=== PATIENT | female | born 1970 | race Caucasian/White ===

== ENCOUNTER 2019-03-05 16:45 | Inpatient (IN) | payer OTHER ==
[2019-03-05 18:31] VITALS: BMI 24.3
--- NOTE | 2019-03-05 19:25 | HP ---
COWS - Scale Resting Pulse: 0= MT 80 or Below Sweatin= Chills/Flushing Restless Observation: 3= Extraneous Movement Pupil Size: 1= Pupils >than Normal Bone or Joint Aches: 1= Mild Discomfort Runny Nose/ Eye Tearin= Nasal Congestion GI Upset > 30mins: 1= Stomach Cramp Tremor Observation: 1= Tremor [place], Not Seen Yawning Observation: 2= >3x During Session Anxiety or Irritability: 2=Irritable/Anxious Goose Flesh Skin: 3=Piloerection COWS Score: 16 CIWA Score - Admission Criteria [facility]ASAS Guidelines: Admission for Medically Managed Detox: Requires at least one of the followin. CIWA greater than 12 2. Seizures within the past 24 hours 3. Delirium tremens within the past 24 hours 4. Hallucinations within the past 24 hours 5. Acute intervention needed for co occurring medical disorder 6. Acute intervention needed for co occurring psychiatric disorder 7. Severe withdrawal that cannot be handled at a lower level of care (continued vomiting, continued diarrhea, abnormal vital signs) requiring intravenous medication and/or fluids 8. Admission ROS [facility] Chief Complaint: Withdrawal symptoms Allergies/Adverse Reactions: Allergies Allergy/AdvReac Type Severity Reaction Status Date / Time No Known Allergies Allergy Verified 03/05/19 18:13 History of Present Illness: 48 y.o. woman with an extensive history of heroin dependence is here for detox. She reports she last completed detox in [place], [place] one month ago. Longest period of illicit drug abstinence has been 4 years and reports she relapsed in 08/2018 Exam Limitations: No Limitations - Ebola screening Have you traveled outside of the country in the last 21 days: No (N) Have you had contact with anyone from an Ebola affected area: No Do you have a fever: No - Review of Systems Constitutional: Loss of Appetite, Unintentional Wgt. Loss EENT: reports: No Symptoms Reported Respiratory: reports: Cough, Wheezing Cardiac: reports: No Symptoms Reported GI: reports: No Symptoms Reported : reports: No Symptoms Reported Musculoskeletal: reports: Joint Pain Integumentary: reports: Lumps (Left hand) Neuro: reports: No Symptoms reported Endocrine: reports: No Symptoms Reported Hematology: reports: Anemia Psychiatric: reports: Mood/Affect Appropiate, Orientated x3 Other Systems: Reviewed and Negative Patient History - Patient Medical History Hx Anemia: Yes (PAULETTE) Hx Asthma: Yes Hx Chronic Obstructive Pulmonary Disease (COPD): No Hx Cancer: No Hx Cardiac Disorders: No Hx Congestive Heart Failure: No Hx Hypertension: No Hx Hypercholesterolemia: No Hx Pacemaker: No HX Cerebrovascular Accident: No Hx Seizures: No Hx Dementia: No Hx Diabetes: No Hx Gastrointestinal Disorders: Yes (TAKES OMEPRAZOLE ) Hx Liver Disease: No Hx Genitourinary Disorders: No Hx Sexually Transmitted Disorders: No Hx Renal Disease (ESRD): No Hx Thyroid Disease: No Hx Human Immunodeficiency Virus (HIV): No Hx Hepatitis C: Yes (REPORTS SHE CLEARED THE VIRUS ) Hx Depression: No Hx Suicide Attempt: No Hx Bipolar Disorder: No Hx Schizophrenia: No Other Medical History: LYME DISEASE - Patient Surgical History Past Surgical History: Yes Other Surgical History: LIPOMA REMOVAL Anesthesia Reaction: No - PPD History Previous Implant?: Yes Documented Results: Negative w/o proof PPD to be Administered?: Yes - Reproductive History Patient is a Female of Child Bearing Age (11 -55 yrs old): Yes Last Menstrual Period: 05/25/18 Patient : No - Smoking Cessation Smoking history: Current every day smoker Have you smoked in the past 12 months: Yes Aproximately how many cigarettes per day: 10 Initiated information on smoking cessation: Yes 'Breaking Loose' booklet given: 03/05/19 - Substance & Tx. History Hx Alcohol Use: No Hx Substance Use: Yes Substance Use Type: Cocaine, Heroin Hx Substance Use Treatment: Yes (DETOX: 1 MONTH AGO ) - Substances abused Heroin Substance route: Injection Frequency: Daily Amount used: 16 bags Age of first use: 26 Date of last use: 03/05/19 Crack Substance route: Smoking Frequency: Daily Amount used: 10 dime bags Age of first use: 16 Date of last use: 03/05/19 Cocaine Substance route: Injection Frequency: 3-6 times per week Amount used: 20 dollars Age of first use: 39 Date of last use: 03/03/19 Marijuana/Hashish Substance route: Smoking Frequency: 1-2 times per week Amount used: one joint Age of first use: 13 Date of last use: 03/02/19 Family Disease History - Family Disease History Family Disease History: Respiratory: Mother (ETOH DEPENDENCE ), Brother, Son, Other: Mother Admission Physical Exam BHS - Vital Signs Vital Signs: Vital Signs - 24 hr 03/05/19 18:21 Temperature 97.5 F L Pulse Rate 66 Respiratory 18 Rate Blood Pressure 131/79 - Physical General Appearance: Yes: Tremorous, Sweating, Anxious HEENTM: Yes: Hearing grossly Normal, Normocephalic, Normal Voice Respiratory: Yes: Lungs Clear, Normal Breath Sounds, No Respiratory Distress, No Accessory Muscle Use Neck: Yes: No masses,lesions,Nodules, Trachea in good position Breast: Yes: Breast Exam Deferred Cardiology: Yes: Regular Rate, Murmur Abdominal: Yes: Non Tender, Flat, Soft Genitourinary: Yes: Other (No complaints reported) Back: Yes: Normal Inspection Musculoskeletal: Yes: full range of Motion, Gait Steady, Pelvis Stable Extremities: Yes: Normal Inspection, Swelling (left hand), Erythema, Inflammation Neurological: Yes: Alert, Normal Mood/Affect, Normal Response Integumentary: Yes: Warm, Track [place] Lymphatic: Yes: Within Normal Limits - Diagnostic (1) Opioid dependence Current Visit: Yes Status: Chronic (2) Cocaine dependence Current Visit: Yes Status: Chronic (3) Nicotine dependence Current Visit: Yes Status: Chronic (4) GERD (gastroesophageal reflux disease) Current Visit: Yes Status: Chronic (5) Lyme disease Current Visit: Yes Status: Chronic (6) Asthma Current Visit: Yes Status: Chronic (7) Tinea pedis Current Visit: Yes Status: Acute (8) HCV (hepatitis C virus) Current Visit: Yes Status: Chronic (9) Cellulitis of hand, left Current Visit: Yes Status: Acute Cleared for Admission S - Detox or Rehab [facility] Level of Care: Medically Managed Detox Regimen/Protocol: Methadone Breathalyzer - Breathalyzer Breathalyzer: 0 POC Urine test - Test device test lot number: [id number] Expiration date: 07/24/20 - Control test control: Yes - Result Urine Test Results: Negative - NO line present Urine Drug Screen - Test Device Lot number: [id number] Expiration date: 11/21/20 - Control Is test valid?: Yes - Results Drug screen NEGATIVE: No Urine drug screen results: THC-Marijuana, AKIL-Cocaine, FEN-Fentanyl, MOP-Opiates , BZO-Benzodiazepines Inpatient Rehab Admission - Rehab Decision to Admit Inpatient rehab admission?: No
[2019-03-05] MEDS ORDERED: MAG HYDROX/AL HYDROX/SIMETH 30 ML UNIT-DOSE CUP PO PRN (19:33)
[2019-03-05] MEDS ORDERED: hydrOXYzine PAMOATE 25 MG CAPSULE (FP) PO PRN (19:33)
[2019-03-05] MEDS ORDERED: cloNIDine HCL 0.1 MG TABLET PO PRN (19:33)
[2019-03-05] MEDS ORDERED: MENTHOL/PHENOL 1 EACH UD MM PRN (19:33)
[2019-03-05] MEDS ORDERED: METHADONE HCL 10 MG TABLET (FOR DETOX USE ONLY) PO ONE ×2 (19:33→23:00)
[2019-03-05] MEDS ORDERED: MAGNESIUM CITRATE 300 ML BOTTLE PO PRN (19:33)
[2019-03-05] MEDS ORDERED: MELATONIN 5 MG TABLETS PO PRN (19:33)
[2019-03-05] MEDS ORDERED: ACETAMINOPHEN 325 MG TABLET (FP) PO PRN ×2 (19:33)
[2019-03-05] MEDS ORDERED: NALOXONE HCL 0.4 MG/ML VIAL IVPUSH PRN (19:33)
[2019-03-05] MEDS ORDERED: MAGNESIUM HYDROX 2400MG/30ML ORAL SUSPENSION 30 ML CUP PO PRN (19:33)
[2019-03-05] MEDS ORDERED: BISMUTH SUBSALICYLATE 524 MG/30 ML UD PO PRN (19:33)
[2019-03-05] MEDS ORDERED: METHOCARBAMOL 500 MG TABLET PO PRN (19:33)
[2019-03-05] MEDS ORDERED: ALBUTEROL SO4 8 GM HFA INHALER IH PRN (19:36)
[2019-03-05] MEDS: PANTOPRAZOLE 20 MG TABLET (FP) PO SCH (21:04)
[2019-03-05] MEDS: THIAMINE HCL 100 MG TABLET (FP) PO SCH (22:21)
[2019-03-05] MEDS: SULFAMETHOXAZOLE/TRIMETHOPRIM 800MG/160MG D.S. TABLET PO SCH (22:21)
[2019-03-05] MEDS: TOLNAFTATE 1% CREAM 15 GM TUBE TP SCH (22:22)
[2019-03-06] MEDS ORDERED: METHADONE HCL 10 MG TABLET (FOR DETOX USE ONLY) PO ONE (10:00)
[2019-03-06 10:04] LABS: ALBUMIN 2.8 g/dl (3.4-5.0); BILIRUBIN,TOTAL 0.3 mg/dL (0.2-1); BLOOD UREA NITROGEN 18.4 mg/dL (7-18); CALCIUM 8.8 mg/dL (8.5-10.1); CREATININE 0.9 mg/dL (0.55-1.3); POTASSIUM 5.6 mmol/L (3.5-5.1); TOT PROT 6.4 g/dl (6.4-8.2)
[2019-03-06 10:15] LABS: HEMATOCRIT 32.9 % (32.4-45.2); HEMOGLOBIN 10.3 GM/dL (10.7-15.3); MCHC 31.3 g/dl (32.0-36.0); MEAN CELL VOLUME 76.8 fl (80-96); MEAN PLT VOLUME 8.8 fl (7.5-11.1); RBC 4.28 M/mm3 (3.60-5.2); RDW 20.6 % (11.6-15.6); WHITE BLOOD COUNT 4.6 K/mm3 (4.0-10.0)
[2019-03-06 10:24] LABS: PLATELET COUNT 238 K/MM3 (134-434)
[2019-03-06] MEDS: PANTOPRAZOLE 20 MG TABLET (FP) PO SCH (10:39)
[2019-03-06] MEDS: SULFAMETHOXAZOLE/TRIMETHOPRIM 800MG/160MG D.S. TABLET PO SCH ×2 (10:39→22:12)
[2019-03-06] MEDS: IBUPROFEN 400 MG TABLET (FP) PO PRN ×2 (10:40→22:15)
[2019-03-06] MEDS: TOLNAFTATE 1% CREAM 15 GM TUBE TP SCH ×2 (10:41→22:12)
[2019-03-06] MEDS: PRENATAL VITAMINS W/ FOLIC ACID TABLET (FP) PO SCH (10:42)
--- NOTE | 2019-03-06 14:02 | EKG ---
Test Reason : Blood Pressure : / mmHG Vent. Rate : 064 BPM Atrial Rate : 064 BPM P-R Int : 148 ms QRS Dur : 082 ms QT Int : 398 ms P-R-T Axes : 066 066 048 degrees QTc Int : 410 ms NORMAL SINUS RHYTHM NORMAL ECG NO PREVIOUS ECGS AVAILABLE Confirmed by LEONCIO MCKEON MD ([id number]) on 03/06/2019 2:02:23 PM Referred By: Confirmed By:LEONCIO MCKEON MD
--- NOTE | 2019-03-06 16:00 | PN ---
BHS COWS - Scale Resting Pulse: 0= [place] 80 or Below Sweatin= Chills/Flushing Restless Observation: 0= Sits Still Pupil Size: 0= Normal to Room Light Bone or Joint Aches: 2= Severe Diffuse Aches Runny Nose/ Eye Tearin= None GI Upset > 30mins: 1= Stomach Cramp Tremor Observation of Outstretched Hands: 0= None Yawning Observation: 1= 1-2x During Session Anxiety or Irritability: 2=Irritable/Anxious Goose Flesh Skin: 3=Piloerection COWS Score: 10 BHS Progress Note (SOAP) Subjective: Body Aches, Stomach Cramping, Anxious, Fatigue. Objective: PATIENT A & O X 3. IN NO ACUTE DISTRESS. 03/06/19 16:01 Vital Signs Temperature 97.4 F L 03/06/19 13:30 Pulse Rate 69 03/06/19 13:30 Respiratory Rate 18 03/06/19 13:30 Blood Pressure 137/87 03/06/19 13:30 O2 Sat by Pulse Oximetry (%) Laboratory Tests 03/05/19 03/06/19 03/06/19 21:52 07:00 07:00 WBC 4.6 RBC 4.28 Hgb 10.3 L Hct 32.9 MCV 76.8 L MCH 24.0 L MCHC 31.3 L RDW 20.6 H Plt Count 238 MPV 8.8 Sodium 141 Potassium 5.6 H Chloride 110 H Carbon Dioxide 30 Anion Gap 1 L BUN 18.4 H Creatinine 0.9 Est GFR (CKD-EPI)AfAm 87.02 Est GFR (CKD-EPI)NonAf 75.08 Random Glucose 88 Calcium 8.8 Total Bilirubin 0.3 AST 12 L ALT 14 Alkaline Phosphatase 89 Total Protein 6.4 Albumin 2.8 L POC Urine HCG, Qual Negative RPR Titer 03/06/19 07:00 WBC RBC Hgb Hct MCV MCH MCHC RDW Plt Count MPV Sodium Potassium Chloride Carbon Dioxide Anion Gap BUN Creatinine Est GFR (CKD-EPI)AfAm Est GFR (CKD-EPI)NonAf Random Glucose Calcium Total Bilirubin AST ALT Alkaline Phosphatase Total Protein Albumin POC Urine HCG, Qual RPR Titer Nonreactive LABS NOTED. Assessment: 03/06/19 16:01 WITHDRAWAL SYMPTOMS. HYPERKALEMIA. ANEMIA (LOW HGB LEVEL). 03/06/19 16:03 Plan: CONTINUE DETOX. FEOSOL, 325 MG PO BIDWM FOR ANEMIA NOTED ON DETOX ADMISSION LABORATORY ASSESSMENT. PATIENT IS CURRENTLY RECEIVING DAILY MVI CONTAINING B VITAMINS AND IRON WHILE ADMITTED FOR DETOX. REPEAT K LEVEL FOR TOMORROW AM FOR ELEVATED K LEVEL NOTED ON DETOX ADMISSION LABORATORY ASSESSMENT.
[2019-03-06] MEDS: FERROUS SO4 325 MG TABLET (FP) PO SCH (22:11)
[2019-03-06] MEDS: THIAMINE HCL 100 MG TABLET (FP) PO SCH (22:12)
[2019-03-06] MEDS: clonazePAM 0.5 MG TABLET PO PRN (22:13)
[2019-03-07] MEDS: FERROUS SO4 325 MG TABLET (FP) PO SCH ×2 (07:53→17:23)
[2019-03-07] MEDS ORDERED: METHADONE HCL 10 MG TABLET (FOR DETOX USE ONLY) PO ONE (10:00)
[2019-03-07] MEDS: clonazePAM 0.5 MG TABLET PO PRN ×2 (10:30→17:25)
[2019-03-07] MEDS: SULFAMETHOXAZOLE/TRIMETHOPRIM 800MG/160MG D.S. TABLET PO SCH ×2 (10:30→22:18)
[2019-03-07] MEDS: PRENATAL VITAMINS W/ FOLIC ACID TABLET (FP) PO SCH (10:30)
[2019-03-07] MEDS: PANTOPRAZOLE 20 MG TABLET (FP) PO SCH (10:30)
[2019-03-07] MEDS: TOLNAFTATE 1% CREAM 15 GM TUBE TP SCH ×2 (10:34→23:30)
--- NOTE | 2019-03-07 15:10 | PN ---
S CIWA - CIWA Score Nausea/Vomitin (Stomach Cramping.) Muscle Tremors: None Anxiety: 2 Agitation: 1-Slight > Activity Paroxysmal Sweats: No Perspiration Orientation: 0-Oriented Tacttile Disturbances: 2-Mild Itch/Numbness/Burn Auditory Disturbances: 1-Very Mild Visual Disturbances: 2-Mild Sensitivity Headache: 0-None Present CIWA-Ar Total Score: 10 BHS Progress Note (SOAP) Subjective: Body Aches, Anxious, Stomach Cramping, Fatigue. Objective: PATIENT A & O X 3, OBSERVED AMBULATING ON UNIT UNASSISTED. IN NO ACUTE DISTRESS. 03/07/19 15:11 Vital Signs Temperature 98.9 F 03/07/19 09:39 Pulse Rate 61 03/07/19 09:39 Respiratory Rate 18 03/07/19 09:39 Blood Pressure 150/77 03/07/19 09:39 O2 Sat by Pulse Oximetry (%) Laboratory Tests 03/05/19 03/06/19 03/06/19 21:52 07:00 07:00 WBC 4.6 RBC 4.28 Hgb 10.3 L Hct 32.9 MCV 76.8 L MCH 24.0 L MCHC 31.3 L RDW 20.6 H Plt Count 238 MPV 8.8 Sodium 141 Potassium 5.6 H Chloride 110 H Carbon Dioxide 30 Anion Gap 1 L BUN 18.4 H Creatinine 0.9 Est GFR (CKD-EPI)AfAm 87.02 Est GFR (CKD-EPI)NonAf 75.08 Random Glucose 88 Calcium 8.8 Total Bilirubin 0.3 AST 12 L ALT 14 Alkaline Phosphatase 89 Total Protein 6.4 Albumin 2.8 L POC Urine HCG, Qual Negative RPR Titer 03/06/19 03/07/19 07:00 07:00 WBC RBC Hgb Hct MCV MCH MCHC RDW Plt Count MPV Sodium Potassium 4.6 Chloride Carbon Dioxide Anion Gap BUN Creatinine Est GFR (CKD-EPI)AfAm Est GFR (CKD-EPI)NonAf Random Glucose Calcium Total Bilirubin AST ALT Alkaline Phosphatase Total Protein Albumin POC Urine HCG, Qual RPR Titer Nonreactive LABS NOTED. RESULT OF REPEAT POTASSIUM LEVEL NOTED. POTASSIUM LEVEL NOW NOTED TO BE WITH NORMAL RANGE. 03/07/19 15:12 Assessment: 03/07/19 15:12 WITHDRAWAL SYMPTOMS. ANEMIA. Plan: CONTINUE DETOX. CONTINUE FEOSOL PO, BIDWM.
[2019-03-07] MEDS: IBUPROFEN 600 MG TABLET (FP) PO PRN (17:25)
[2019-03-07] MEDS: THIAMINE HCL 100 MG TABLET (FP) PO SCH (22:18)
[2019-03-08] MEDS: FERROUS SO4 325 MG TABLET (FP) PO SCH (07:54)
[2019-03-08 09:46] VITALS: BP 109/68; PULSE 52; TEMP 97.9
[2019-03-08] MEDS ORDERED: METHADONE HCL 10 MG TABLET (FOR DETOX USE ONLY) PO ONE (10:00)
[2019-03-08] MEDS: SULFAMETHOXAZOLE/TRIMETHOPRIM 800MG/160MG D.S. TABLET PO SCH (10:38)
[2019-03-08] MEDS: PANTOPRAZOLE 20 MG TABLET (FP) PO SCH (10:38)
[2019-03-08] MEDS: PRENATAL VITAMINS W/ FOLIC ACID TABLET (FP) PO SCH (10:38)
[2019-03-08] MEDS: TOLNAFTATE 1% CREAM 15 GM TUBE TP SCH (10:39)
[2019-03-08] MEDS: clonazePAM 0.5 MG TABLET PO PRN (10:41)
[2019-03-08] MEDS: IBUPROFEN 600 MG TABLET (FP) PO PRN (10:42)
--- NOTE | 2019-03-08 13:15 | DS ---
[facility] Detox Discharge Summary Admission Date: 03/05/19 Discharge Date: 03/08/19 (Pt left AMA) - History Present History: Cocaine Dependence, Opioid Dependence Additional Comments: Pt left AMA, pt did not complete his detox protocol, states "i'm leaving, i have something to take care of". Attempt to let pt stay and complete her detox protocol failed. Pt is instructed to follow-up with her pmd and also follow-up with [facility] program outpatient. Pt verbalized understanding. Pt is AOX3, in no respiratory distress. Pertinent Past History: GERD, Anemia, asthma, Hepc, cocaine and opioids abuse. - Physical Exam Results Vital Signs: Vital Signs Temperature 97.9 F 03/08/19 09:46 Pulse Rate 52 L 03/08/19 09:46 Respiratory Rate 17 03/08/19 09:46 Blood Pressure 109/68 03/08/19 09:46 O2 Sat by Pulse Oximetry (%) Pertinent Admission Physical Exam Findings: withdrawal symptoms. - Treatment Hospital Course: Detox Protocol Followed - Medication Discharge Medications: Ambulatory Orders Albuterol Sulfate Inhaler - [Ventolin HFA Inhaler -] 2 inhaler PO Q4HWA PRN 09/11 Omeprazole 20 mg PO DAILY 03/05/19 - Diagnosis (1) Anemia Status: Acute (2) Asthma Status: Chronic (3) Cocaine dependence Status: Chronic (4) HCV (hepatitis C virus) Status: Chronic - AMA Did Patient Leave Against Medical Advice: Yes
[2019-03-09] MEDS ORDERED: METHADONE HCL 5 MG TABLET (FOR DETOX USE ONLY) PO ONE (06:00)
[2019-03-09] MEDS ORDERED: METHADONE HCL 10 MG TABLET (FOR DETOX USE ONLY) PO ONE (10:00)
[2019-03-10] MEDS ORDERED: METHADONE HCL 5 MG TABLET (FOR DETOX USE ONLY) PO ONE (06:00)
== END 2019-03-08 12:25 | disposition left against medical advice (07) | DRG 770 ==
LOC: YASAS 16:45 → Y3N 19:23
PROVIDERS: ADMIT Surgery; ATTEND Surgery
PROC: HZ2ZZZZ Detoxification Services for Substance Abuse Treatment (ICD-10-PCS; principal; 2019-03-05)
DX: F11.23 Opioid dependence with withdrawal (principal); F14.20 Cocaine dependence, uncomplicated; F17.210 Nicotine dependence, cigarettes, uncomplicated; J45.909 Unspecified asthma, uncomplicated; D50.9 Iron deficiency anemia, unspecified; B18.2 Chronic viral hepatitis C; E87.5 Hyperkalemia; R01.1 Cardiac murmur, unspecified; B35.3 Tinea pedis; L03.114 Cellulitis of left upper limb; A69.20 Lyme disease, unspecified
CPT/HCPCS: 36415; 80053; 81025; 84132; 85027; 86593; 93005; 93010